=== PATIENT | female | born 1955 | race Caucasian/White ===

== ENCOUNTER → 2017-11-14 | Outpatient (CLI) | payer OTHER ==
--- NOTE | 2017-11-14 15:46 | US ---
EXAMINATION TYPE: US thyroid st tissue head/neck DATE OF EXAM: 11/14/2017 COMPARISON: NONE CLINICAL HISTORY: E04.1 NONTOXIC SINGLE THYROID NODULE. GLAND SIZE: Right Lobe: 4.4 x 1.3 x 1.5 cm Overall Parenchyma: homogenous Left Lobe: 3.7 x 1.5 x 1.0 cm Overall Parenchyma: homogeneous Isthmus Thickness: 0.2 cm NODULES RIGHT: # of nodules measured on right: 1 1. 0.8 X 0.4 x 0.6 cm hypoechoic mixed nodule at the upper pole with well-defined margins; . This nodule is wider than tall and shows intranodular vascularity. Prior size: no prior LEFT: # of nodules measured on left: 0 ISTHMUS: # of nodules measured in the isthmus: 0 Bilateral neck scanned, no evidence of lymphadenopathy. nodule as described IMPRESSION: Nonspecific right-sided thyroid nodule.
--- NOTE | 2017-11-22 13:02 | P.ARTDOP ---
Arterial Doppler LOWER EXTREMITY ARTERIAL DOPPLER: DATE OF SERVICE: 11/14/2017 Reason for study: Bilateral leg pain. Doppler waveforms: Multiphasic bilaterally throughout. Pulse volume recording: Mild distal blunting on the left. Pressure gradients: Mild distal gradients especially on the left. Ankle-brachial indices: Greater than 1 bilaterally. Toe pressures: 97 on the right, 77 on the left Impression: Normal study. Decreased toe pressures can be related to vasospasm or less likely very distal disease..
== END | disposition home or self-care (01) ==
LOC: RADUSWWP 14:13
PROVIDERS: ATTEND Family Medicine
DX: I73.9 Peripheral vascular disease, unspecified (principal); E04.1 Nontoxic single thyroid nodule
CPT/HCPCS: 76536; 93923

== ENCOUNTER → 2017-12-25 | Outpatient (CLI) | payer OTHER ==
--- NOTE | 2017-12-25 19:39 | XR ---
EXAMINATION TYPE: XR chest 2V DATE OF EXAM: 12/25/2017 COMPARISON: 08/11/2015 HISTORY: Cough TECHNIQUE: Frontal and lateral views of the chest are obtained. FINDINGS: Heart and mediastinum are normal. Lungs are clear of consolidation. There is mild thoracic dextroscoliosis. There is no evidence of pleural effusion. There is no heart failure. There is sligh t increased density at the left lung base on the frontal view. IMPRESSION: Normal heart. Possible new minimal infiltrate at the left lung base compared to old exam . No heart failure.
== END | disposition home or self-care (01) ==
LOC: RADXRMAIN 17:04
PROVIDERS: ATTEND Family Medicine
DX: J44.1 Chronic obstructive pulmonary disease with (acute) exacerbation (principal); R05 Cough
CPT/HCPCS: 71046

== ENCOUNTER → 2018-01-12 | Outpatient (CLI) | payer OTHER ==
--- NOTE | 2018-01-12 10:02 | CT ---
EXAMINATION TYPE: CT chest wo con DATE OF EXAM: 01/12/2018 COMPARISON: 12/25/2017 chest radiograph HISTORY: Shortness of breath CT DLP: 445.3 mGycm. Automated Exposure Control for Dose Reduction was Utilized. TECHNIQUE: CT scan of the thorax is performed without IV contrast. FINDINGS: LUNGS: The lungs are grossly clear, there is no concerning parenchymal mass or nodule identified. T here is no pleural effusion or pneumothorax seen. The tracheobronchial tree is patent. There is no e vidence of honeycombing, subpleural reticulation, peribronchial cuffing, emphysema, or pulmonary fibr osis. No interlobular septal thickening. Within a segmental bronchus to the right middle lobe few ins pissated secretions are seen on both supine and prone imaging. No dependent airspace disease is ident ified. MEDIASTINUM: Lack of IV contrast is noted to limit evaluation for mediastinal and especially hilar ad enopathy. There are no definitive greater than 1 cm hilar or mediastinal lymph nodes. No cardiomega ly or pericardial effusion is seen. Ascending thoracic aorta is within normal limits measuring 3.5 cm . Minimal calcifications are noted of the left anterior descending coronary artery. OTHER: No additional significant abnormality is seen. Dystrophic calcification is noted within the u pper outer quadrant of the right breast. Mild multilevel degenerative changes of the osseous structur es are present. IMPRESSION: 1. No evidence of interstitial lung disease, focal consolidation or pulmonary mass. Evaluation for pu lmonary nodule is limited due to noncontiguous slices. 2. Scant inspissated secretions within a segmental bronchus of the right middle lobe that could repre sent nonobstructing mucus plugging or aspiration. No focal consolidation or atelectasis distal to thi s.
== END | disposition home or self-care (01) ==
LOC: RADCTMAIN 08:19
PROVIDERS: ATTEND Family Medicine
DX: R91.8 Other nonspecific abnormal finding of lung field (principal); R06.02 Shortness of breath
CPT/HCPCS: 71250

== ENCOUNTER 2019-05-09 13:27 | Emergency (ER) | payer OTHER ==
[2019-05-09 14:06] VITALS: PULSE 77; RESP 17; TEMP 98.6
[2019-05-09 14:08] VITALS: BP 173/95
--- NOTE | 2019-05-09 14:38 | ED ---
General Adult HPI - General Chief complaint: Extremity Injury, Lower Stated complaint: Left foot pain Time Seen by Provider: 05/09/19 13:55 Source: patient Mode of arrival: EMS Limitations: no limitations - History of Present Illness Initial comments: Patient is 63-year-old female presents emergency Department with left foot pain. Patient states that she days ago [place] when she did not completely roll her ankle but had difficult time walking. Patient reports the pain is located on the lateral medial malleoli as well as the midfoot. Patient reports the pain is only mild and dull in nature. Patient reports pain exacerbated with plantar flexion and alleviated at rest. Patient denies any medication to alleviate the pain. Patient denies numbness or tingling. - Related Data Home Medications Medication Instructions Recorded Confirmed Albuterol Sulfate [Proair Hfa] 2 puff INHALATION RT-BID 09/28/15 09/28/15 Dextroamphetamine/Amphetamine 20 mg PO DAILY 09/28/15 09/28/15 [Adderall] lamoTRIgine [LaMICtal] 200 mg PO HS 09/28/15 09/28/15 Levothyroxine Sodium [Synthroid] 50 mcg PO DAILY 09/29/15 09/29/15 Previous Rx's Medication Instructions Recorded Sertraline [Zoloft] 50 mg PO DAILY #30 tab 10/02/15 Allergies Allergy/AdvReac Type Severity Reaction Status Date / Time levofloxacin [From Levaquin] Allergy DOUBLE Verified 09/28/15 22:37 VISION Penicillins Allergy Rash/Hives Verified 09/28/15 22:37 Sulfa (Sulfonamide AdvReac Rash/Hives Verified 09/28/15 22:37 Antibiotics) Review of Systems ROS Statement: Those systems with pertinent positive or pertinent negative responses have been documented in the HPI. ROS Other: All systems not noted in ROS Statement are negative. 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 Past Anesthesia/Blood Transfusion Reactions: No Reported Reaction Past Psychological History: ADD/ADHD, Anxiety, Depression Smoking Status: Current every day smoker Past Alcohol Use History: Occasional Past Drug Use History: None Reported General Exam - General Exam Comments Initial Comments: General: Well-developed well-nourished distress HEENT: Normocephalic/atraumatic, PERLL, pharynx erythema, swallowing well, EAC no erythema, no exudates, TM clear, no cervical lymph nodes Neck: Supple, nontender, trachea midline Chest/Lungs: Normal respirations, no signs of respiratory distress clear to auscultation bilaterally no wheezes, rales, rhonchi Cardiac: Regular rate and rhythm, normal S1-S2, no murmurs rubs or gallops Abdomen/GI: Soft nontender, bowel sounds equal or quadrant x4, no guarding, no rebound no CVA tenderness Musculoskeletal: Tenderness along the lateral medial malleoli and midfoot. Pain with plantar flexion. Negative Homans, negative anterior drawer. No edema or erythema Skin: Warmth, no rashes or lesions, no cyanosis or diaphoresis Neurologic: AAO x 3, CN 2-12 intact, Psychiatric: Mood and affect normal, judgment normal Limitations: no limitations Course Vital Signs 05/09/19 05/09/19 14:00 14:06 Temperature 98.6 F Pulse Rate 77 Respiratory 17 Rate Blood Pressure 173/95 O2 Sat by Pulse 93 L Oximetry Procedures - Orthopedic Splinting/Casting Injury #1 Side: left Lower Extremity Injury Location: ankle, foot Lower Extremity Immobilizer: Adolfo wrap Medical Decision Making - Medical Decision Making Patient is 63-year-old female presents emergency Department with left foot pain. X-ray of the left ankle and foot were obtained. No acute fractures or dislocations noted. Patient does appear to have arthropathy. Patient advised to have a follow-up imaging if symptoms do not resolve in 7-10 days. Patient advised to follow-up with orthopedics. Patient advised to return to emergency department if symptoms worsen. Adolfo wrap applied to the left foot and ankle. Case discussed with physician. Disposition Clinical Impression: Strain of foot, left Disposition: HOME SELF-CARE Condition: Stable Instructions (If sedation given, give patient instructions): Foot Sprain (ED) Additional Instructions: Alternate between Tylenol and ibuprofen for pain control. Keep foot elevated and apply ice compress to minimize symptoms. Please follow-up with orthopedics if symptoms do not resolve within a week. Please return to emergency department if symptoms worsen. Is patient prescribed a controlled substance at d/c from ED?: No Referrals: Nonstaff,Physician [Primary Care Provider] - 1-2 days Vince Wheeler DO [Medical Doctor] - 1-2 days Time of Disposition: 15:09
--- NOTE | 2019-05-09 14:51 | XR ---
EXAMINATION TYPE: XR ankle complete LT DATE OF EXAM: 05/09/2019 COMPARISON: NONE HISTORY: Pain FINDINGS: Three views of the ankle demonstrate the ankle mortise to be intact and symmetric. The joint spaces are preserved. The osseous structures are intact. There is a calcaneal spur. There is a tiny spur o ff the medial malleolus. IMPRESSION: 1. No definite acute fracture or dislocation, if symptoms persist follow-up study in 7 to 10 days wou ld be suggested.
--- NOTE | 2019-05-09 14:53 | XR ---
EXAMINATION TYPE: XR foot complete LT DATE OF EXAM: 05/09/2019 COMPARISON: NONE HISTORY: Pain TECHNIQUE: Three views are submitted. FINDINGS: The osseous structures are intact. There is no acute fracture or dislocation. Arthropathy first MT P joint. Hammertoe deformities noted. Calcaneal spurs noted.. IMPRESSION: 1. No acute fracture or dislocation. If symptoms persist, follow-up exam in 7 to 10 days could be ob tained. 2. Arthropathy.
== END 2019-05-09 15:20 | disposition home or self-care (01) ==
LOC: EC 13:27
DX: S96.912A Strain of unspecified muscle and tendon at ankle and foot level, left foot, initial encounter (principal); J44.9 Chronic obstructive pulmonary disease, unspecified; E07.9 Disorder of thyroid, unspecified; F90.9 Attention-deficit hyperactivity disorder, unspecified type; F32.9 Major depressive disorder, single episode, unspecified; G47.30 Sleep apnea, unspecified; F17.200 Nicotine dependence, unspecified, uncomplicated; Z88.0 Allergy status to penicillin; Z88.1 Allergy status to other antibiotic agents; Z88.2 Allergy status to sulfonamides; Z79.890 Hormone replacement therapy; Z79.899 Other long term (current) drug therapy; Z99.89 Dependence on other enabling machines and devices; X50.9XXA Other and unspecified overexertion or strenuous movements or postures, initial encounter; Y93.01 Activity, walking, marching and hiking; Y92.832 Beach as the place of occurrence of the external cause
CPT/HCPCS: 99283

== ENCOUNTER 2020-08-16 22:11 | Emergency (ER) | payer MEDICARE, OTHER ==
[2020-08-16 22:16] VITALS: RESP 16
[2020-08-16] MEDS ORDERED: SODIUM CHLORIDE 0.9% 1,000 ML IV STA (22:28)
--- NOTE | 2020-08-16 22:29 | ED ---
Neuro HPI - General Chief Complaint: Neuro Symptoms/Deficit Stated Complaint: Loss of speech Time Seen by Provider: 08/16/20 22:28 Source: patient Mode of arrival: ambulatory Limitations: no limitations - History of Present Illness Is the patient presenting with stroke symptoms?: No Onset/Timin -: hour(s) Initial Comments: Bre is a 64-year-old female who presents the ER today for evaluation of an episode of difficulty speaking. Patient admits that she was smoking marijuana which she does regularly. She states that she was talking to a friend when suddenly felt like she was having trouble getting the words out. She states she felt like her tongue was too big for her mouth and her mouth was very dry. This sensation lasted 10-15 minutes and resolved completely. She had no headache, vision changes, facial droop, weakness in the arms or legs. Patient has no history of clotting disorder, arrhythmia, stroke or cardiovascular disease. - Related Data Home Medications: Home Medications Medication Instructions Recorded Confirmed Albuterol Sulfate [Proair Hfa] 2 puff INHALATION RT-BID 09/28/15 09/28/15 Dextroamphetamine/Amphetamine 20 mg PO DAILY 09/28/15 09/28/15 [Adderall] lamoTRIgine [LaMICtal] 200 mg PO HS 09/28/15 09/28/15 Levothyroxine Sodium [Synthroid] 50 mcg PO DAILY 09/29/15 09/29/15 Previous Rx's Medication Instructions Recorded Sertraline [Zoloft] 50 mg PO DAILY #30 tab 10/02/15 Allergies/Adverse Reactions: Allergies Allergy/AdvReac Type Severity Reaction Status Date / Time levofloxacin [From Levaquin] Allergy DOUBLE Verified 08/16/20 22:12 VISION Penicillins Allergy Rash/Hives Verified 08/16/20 22:12 Sulfa (Sulfonamide AdvReac Rash/Hives Verified 08/16/20 22:12 Antibiotics) Review of Systems ROS Statement: Those systems with pertinent positive or pertinent negative responses have been documented in the HPI. ROS Other: All systems not noted in ROS Statement are negative. General Exam - General Exam Comments Initial Comments: Physical Exam GENERAL: Patient is well-developed and well-nourished. Patient is nontoxic and well- hydrated and is in no distress. HENT: Normocephalic, Atraumatic. EYES: PERRL, EOMI PULMONARY: Unlabored respirations. No audible rales rhonchi or wheezing was noted. CARDIOVASCULAR: There is a regular rate and rhythm without any murmurs gallops or rubs. ABDOMEN: Soft and nontender with normal bowel sounds. SKIN: Skin is clear with no lesions or rashes and otherwise unremarkable. : Deferred NEUROLOGIC: Patient is alert and oriented x3. Moving all extremities spontaneously MUSCULOSKELETAL: Normal extremities with adequate strength and full range of motion. No lower extremity swelling or edema. No calf tenderness. PSYCHIATRIC: Normal psychiatric evaluation. Limitations: no limitations Stroke MDM - Lab Data Result diagrams: 08/16/20 22:45 08/16/20 22:45 Lab Results 08/16/20 08/16/20 08/16/20 Range/Units 22:45 22:45 22:45 WBC 5.9 (3.8-10.6) k/uL RBC 4.87 (3.80-5.40) m/uL Hgb 15.0 (11.4-16.0) gm/dL Hct 47.1 H (34.0-46.0) % MCV 96.6 (80.0-100.0) fL MCH 30.7 (25.0-35.0) pg MCHC 31.8 (31.0-37.0) g/dL RDW 12.8 (11.5-15.5) % Plt Count 282 (150-450) k/uL Neutrophils % 57 % Lymphocytes % 32 % Monocytes % 8 % Eosinophils % 0 % Basophils % 1 % Neutrophils # 3.4 (1.3-7.7) k/uL Lymphocytes # 1.9 (1.0-4.8) k/uL Monocytes # 0.5 (0-1.0) k/uL Eosinophils # 0.0 (0-0.7) k/uL Basophils # 0.0 (0-0.2) k/uL PT 9.7 (9.0-12.0) sec INR 0.9 (<1.2) APTT 26.4 (22.0-30.0) sec Sodium 139 (137-145) mmol/L Potassium 4.1 (3.5-5.1) mmol/L Chloride 104 (98-107) mmol/L Carbon Dioxide 28 (22-30) mmol/L Anion Gap 7 mmol/L BUN 15 (7-17) mg/dL Creatinine 0.72 (0.52-1.04) mg/dL Est GFR (CKD-EPI)AfAm >90 (>60 ml/min/1.73 sqM) Est GFR (CKD-EPI)NonAf 89 (>60 ml/min/1.73 sqM) Glucose 99 (74-99) mg/dL Calcium 9.2 (8.4-10.2) mg/dL Magnesium 2.2 (1.6-2.3) mg/dL Total Bilirubin 0.3 (0.2-1.3) mg/dL AST 20 (14-36) U/L ALT 12 (4-34) U/L Alkaline Phosphatase 134 H (38-126) U/L Total Protein 6.8 (6.3-8.2) g/dL Albumin 4.1 (3.5-5.0) g/dL Urine Color Urine Appearance (Clear) Urine pH (5.0-8.0) Ur Specific [place] (1.001-1.035) Urine Protein (Negative) Urine Glucose (UA) (Negative) Urine Ketones (Negative) Urine Blood (Negative) Urine Nitrite (Negative) Urine Bilirubin (Negative) Urine Urobilinogen (<2.0) mg/dL Ur Leukocyte Esterase (Negative) 08/16/20 Range/Units 22:45 WBC (3.8-10.6) k/uL RBC (3.80-5.40) m/uL Hgb (11.4-16.0) gm/dL Hct (34.0-46.0) % MCV (80.0-100.0) fL MCH (25.0-35.0) pg MCHC (31.0-37.0) g/dL RDW (11.5-15.5) % Plt Count (150-450) k/uL Neutrophils % % Lymphocytes % % Monocytes % % Eosinophils % % Basophils % % Neutrophils # (1.3-7.7) k/uL Lymphocytes # (1.0-4.8) k/uL Monocytes # (0-1.0) k/uL Eosinophils # (0-0.7) k/uL Basophils # (0-0.2) k/uL PT (9.0-12.0) sec INR (<1.2) APTT (22.0-30.0) sec Sodium (137-145) mmol/L Potassium (3.5-5.1) mmol/L Chloride (98-107) mmol/L Carbon Dioxide (22-30) mmol/L Anion Gap mmol/L BUN (7-17) mg/dL Creatinine (0.52-1.04) mg/dL Est GFR (CKD-EPI)AfAm (>60 ml/min/1.73 sqM) Est GFR (CKD-EPI)NonAf (>60 ml/min/1.73 sqM) Glucose (74-99) mg/dL Calcium (8.4-10.2) mg/dL Magnesium (1.6-2.3) mg/dL Total Bilirubin (0.2-1.3) mg/dL AST (14-36) U/L ALT (4-34) U/L Alkaline Phosphatase (38-126) U/L Total Protein (6.3-8.2) g/dL Albumin (3.5-5.0) g/dL Urine Color Yellow Urine Appearance Clear (Clear) Urine pH 6.0 (5.0-8.0) Ur Specific [place] 1.028 (1.001-1.035) Urine Protein Trace H (Negative) Urine Glucose (UA) Negative (Negative) Urine Ketones Negative (Negative) Urine Blood Negative (Negative) Urine Nitrite Negative (Negative) Urine Bilirubin Negative (Negative) Urine Urobilinogen 2.0 (<2.0) mg/dL Ur Leukocyte Esterase Negative (Negative) - NIH Stroke Scale 1a. Level of Consciousness: (0) alert 1b. LOC Questions: (0) answers correctly 1c. LOC Commands: (0) performs tasks correctly 2. Best Gaze: (0) normal 3. Visual: (0) no visual loss 4. Facial Palsy: (0) normal symmetrical movement 5a. Motor Arm Left: (0) no drift 5b. Motor Arm Right: (0) no drift 6a. Motor Leg Left: (0) no drift 6b. Motor Leg Right: (0) no drift 7. Limb Ataxia: (0) absent 8. Sensory: (0) normal 9. Best Language: (0) no aphasia 10. Dysarthria: (0) normal 11. Extinction/Inattention: (0) no abnormality NIH Score total: 0 - Thrombolytic Inclusion/Exclusion Thrombolytic Contraindications: NIH 0, Stroke Too Mild - Medical Decision Making The patient was seen and evaluated history was obtained from patient excited 64-year-old female who reports a 10-15 minute episode of difficulty speaking while smoking marijuana, symptoms resolved completely prior to arrival plan head CT and CTA were obtained as well as labs all of which were unremarkable Patient remained asymptomatic throughout her 2 hour stay in the emergency department I offered patient admission to the observation unit for evaluation by neurology however patient states she would prefer discharge home. Patient states that she has a scheduled appointment with her primary care physician Dr. Meghan Vazquez tomorrow at 4 PM. Patient states she will discuss this episode with her primary care physician. I advised the patient to refrain from smoking marijuana, call 911 or return to the ER for any recurrent symptoms. - EKG Data -: EKG Interpreted by Me EKG shows normal: sinus rhythm Rate: normal EKG was obtained at 2230, rate is 88 rhythm is sinus is leftward axis normal intervals, AK 122, QRS 78, QTC 433 there are no acute ST elevations or depress ions no evidence of acute ischemia, infarction or arrhythmia. 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 Past Anesthesia/Blood Transfusion Reactions: No Reported Reaction Past Psychological History: ADD/ADHD, Anxiety, Depression Smoking Status: Current every day smoker Past Alcohol Use History: Occasional Past Drug Use History: Marijuana Course Vital Signs 08/16/20 08/16/20 08/17/20 22:13 23:45 00:40 Temperature 99.5 F 98.9 F Pulse Rate 95 78 79 Respiratory 16 16 16 Rate Blood Pressure 143/96 147/89 152/76 O2 Sat by Pulse 93 L 100 98 Oximetry Disposition Clinical Impression: Transient speech disturbance Disposition: HOME SELF-CARE Condition: Stable Additional Instructions: Follow up with Dr Vazquez tomorrow as scheduled Call 911 or go to the nearest ER if you have any further trouble speaking or develop any new or concerning symptoms Is patient prescribed a controlled substance at d/c from ED?: No Referrals: Nonstaff,Physician [Primary Care Provider] - 1-2 days
[2020-08-16 23:01] LABS: Appearance,Urine Clear (Clear); Basophils % (A) 1 %; Bilirubin,Urine Negative (Negative); Blood,Urine Negative (Negative); Color,Urine Yellow; Eosinophils % (A) 0 %; Glucose,Urine (UA) Negative (Negative); HCT 47.1 % (34.0-46.0); Ketones,Urine Negative (Negative); Leukocyte Esterase,Urine Negative (Negative); Lymphocytes # (A) 1.9 k/uL (1.0-4.8); Lymphocytes % (A) 32 %; MCH 30.7 pg (25.0-35.0); MCHC 31.8 g/dL (31.0-37.0); MCV 96.6 fL (80.0-100.0); Mean Platelet Volume 6.2; Monocytes # (A) 0.5 k/uL (0-1.0); Monocytes % (A) 8 %; Neutrophils # (A) 3.4 k/uL (1.3-7.7); Neutrophils % (A) 57 %; Nitrite,Urine Negative (Negative); Platelet Count 282 k/uL (150-450); Protein,Urine Trace (Negative); RBC 4.87 m/uL (3.80-5.40); RDW 12.8 % (11.5-15.5); Specific Gravity,Urine 1.028 (1.001-1.035); WBC 5.9 k/uL (3.8-10.6)
[2020-08-16 23:08] LABS: INR 0.9 (<1.2); Partial Thromboplastin Time 26.4 sec (22.0-30.0); Prothrombin Time 9.7 sec (9.0-12.0)
[2020-08-16 23:12] LABS: ALT 12 U/L (4-34); AST 20 U/L (14-36); African American GFR (CKD) >90 (>60 ml/min/1.73 sqM); Albumin 4.1 g/dL (3.5-5.0); Alkaline Phosphatase 134 U/L (38-126); Anion Gap 7 mmol/L; Blood Urea Nitrogen 15 mg/dL (7-17); Calcium 9.2 mg/dL (8.4-10.2); Carbon Dioxide 28 mmol/L (22-30); Chloride 104 mmol/L (98-107); Glucose 99 mg/dL (74-99); Magnesium 2.2 mg/dL (1.6-2.3); Non-African American GFR(CKD) 89 (>60 ml/min/1.73 sqM); Potassium 4.1 mmol/L (3.5-5.1); Sodium 139 mmol/L (137-145); Total Bilirubin 0.3 mg/dL (0.2-1.3); Total Protein 6.8 g/dL (6.3-8.2)
--- NOTE | 2020-08-16 23:50 | XR ---
EXAMINATION TYPE: XR chest 2V DATE OF EXAM: 08/16/2020 COMPARISON: 12/25/2017 HISTORY: Altered mental status. COPD. TECHNIQUE: FINDINGS: Heart is normal. Lungs are clear of consolidation. There are no hilar masses. There are neela st leads. Bony thorax is intact. There is slight thoracic dextroscoliosis. IMPRESSION: No active cardiopulmonary disease. Mild thoracic dextroscoliosis. No change.
--- NOTE | 2020-08-16 23:52 | CT ---
EXAMINATION TYPE: CT brain wo con DATE OF EXAM: 08/16/2020 COMPARISON: 08/15/2015 HISTORY: ams CT DLP: 1089 mGycm Automated exposure control for dose reduction was used. Ventricles have fairly normal size. There is no mass effect nor midline shift. There is no sign of in tracranial hemorrhage. There is no evidence of cerebral edema. Calvarium is intact. The skull base is intact. IMPRESSION: Negative CT scan of the brain. No change.
[2020-08-16 23:53] VITALS: TEMP 98.9
--- NOTE | 2020-08-16 23:56 | CT ---
EXAMINATION TYPE: CT angio head neck DATE OF EXAM: 08/16/2020 COMPARISON: None HISTORY: AMS, CT DLP: 336.5 mGycm Automated exposure control for dose reduction was used. CONTRAST: Performed with IV Contrast, patient injected with 65 mL of Isovue 370. There are 3-D post processed images. There is patency of the great vessels of the aortic arch. There is bilateral arterial flow in the sub clavian arteries. There is arterial flow in the common internal and external carotid arteries bilater ally. There is bilateral arterial flow in the vertebral arteries. There is no evidence of carotid art padmini aneurysm or dissection. There is no evidence of vertebral dissection. There is wide patency of th e carotid artery bifurcations. There is no significant plaque formation. There is arterial flow in the vertebrobasilar artery system. There is bilateral patency of the heel seat sander ior communicating arteries. Posterior cerebral arteries fill to a large extent through the posterior communicating arteries. There is arterial flow in the anterior middle and posterior cerebral arteries . There is no mass effect. I see no intracranial aneurysm or neovascularity. There is no sign of intr acranial arterial stenosis. There is normal opacification of the venous sinuses. IMPRESSION: Negative CT angiogram of the neck. Negative CT angiogram of the brain. No evidence of any significant arterial stenosis.
[2020-08-17 00:47] VITALS: BP 152/76; PULSE 79
== END 2020-08-17 00:40 | disposition home or self-care (01) ==
LOC: EC 22:11
DX: R47.9 Unspecified speech disturbances (principal); J44.9 Chronic obstructive pulmonary disease, unspecified; G47.30 Sleep apnea, unspecified; E07.9 Disorder of thyroid, unspecified; F41.9 Anxiety disorder, unspecified; F32.9 Major depressive disorder, single episode, unspecified; F17.200 Nicotine dependence, unspecified, uncomplicated; Z88.0 Allergy status to penicillin; Z88.2 Allergy status to sulfonamides; Z88.1 Allergy status to other antibiotic agents; Z99.89 Dependence on other enabling machines and devices
CPT/HCPCS: 36415; 93005; 80053; 83735; 85025; 85610; 85730; 81003; 71046; 70496; 70450; 70498; 99285; 96360; 96361; Q9967

== ENCOUNTER → 2024-08-20 | Outpatient (CLI) | payer MEDICARE ==
[2024-08-20 14:44] LABS: African American GFR (CKD) >90 (>60 ml/min/1.73 sqM); Blood Urea Nitrogen 20 mg/dL (7-17); Non-African American GFR(CKD) >90 (>60 ml/min/1.73 sqM)
--- NOTE | 2024-08-20 15:34 | CT ---
EXAMINATION TYPE: CT chest w con CT DLP: 507 mGycm, Automated exposure control for dose reduction was used. DATE OF EXAM: 08/20/2024 3:09 PM COMPARISON: 01/12/2018, 08/16/2020 CLINICAL INDICATION: Female, 68 years old with history of R91.1 SOLITARY PULMONARY NODULE; [facility], TECHNIQUE: Multiple axial images were obtained through the chest. Sagittal and coronal reformats were created for review. MIP was performed on a separate workstation. Contrast used: mL of (None if empty) Oral contrast used: (None if empty) FINDINGS: LUNGS/ PLEURA: 7 mm left upper lobe pulmonary nodule series 3 image 19. Mild centrilobular emphysema changes. No focal consolidation, pneumothorax or pleural effusion. AIRWAY: Patent and unremarkable. HEART: Size within normal limits. MEDIASTINUM: No gross evidence of adenopathy. Small hiatal hernia. VASCULATURE: No aortic aneurysm. No minimal pulmonary arterial filling defect to suggest pulmonary e mbolus. MUSCULOSKELETAL: No acute osseous abnormalities SOFT TISSUES/LYMPH NODES: Unremarkable. LOWER NECK: No significant findings. UPPER ABDOMEN: Left adrenal nodule measuring 12 mm. IMPRESSION: 1. Left upper lobe pulmonary nodule not definitively in the [id number] on prior CT 01/12/2018 or 1 . Comparisons with priors would be of benefit. If there are no comparison 6 month follow-up CT recommended to ensure stability. At that time decision can be made for PET/CT. 2. Indeterminate Left adrenal 12 mm nodule. Consider adrenal mass pedicle CT. 3. Small hiatal hernia. [facility], , 08/20/2024 3:32 PM
== END | disposition home or self-care (01) ==
LOC: RADCTMAIN 13:54
PROVIDERS: ATTEND Internal Medicine Critical Care Medicine
CPT/HCPCS: 36415; 71260; 82565; 84520

== ENCOUNTER → 2024-09-17 | Outpatient (CLI) | payer MEDICARE ==
[2024-09-17 16:30] LABS: African American GFR (CKD) >90 (>60 ml/min/1.73 sqM); Blood Urea Nitrogen 16 mg/dL (7-17); Non-African American GFR(CKD) >90 (>60 ml/min/1.73 sqM)
--- NOTE | 2024-09-17 17:33 | CT ---
EXAMINATION TYPE: CT abdomen w con DATE OF EXAM: 09/17/2024 5:18 PM COMPARISON: 01/12/2018 08/20/2024. CLINICAL INDICATION: Female, 68 years old with history of D35.02 BENIGN NEOPLASM L ADRENAL GLAND E27. 9; BENIGN NEOPLASM L ADRENAL GLAND. TECHNIQUE: Axial CT abdomen w con;Sagittal and coronal reformats were created on a separate workstat ion. Contrast used:100ML mL of Isovue 370 with IV Contrast, (none if empty) Oral contrast used: with Oral Contrast (none if empty) CT DLP: 449 mGycm, Automated exposure control for dose reduction was used. FINDINGS: LOWER CHEST: Unremarkable ABDOMEN LIVER: Unremarkable GALLBLADDER AND BILE DUCTS: Unremarkable. PANCREAS: Unremarkable. SPLEEN: Unremarkable. ADRENAL GLANDS: 11 mm left adrenal nodule. No right adrenal nodule. KIDNEYS AND URETERS: No evidence of hydronephrosis or renal calculus. The ureters are unremarkable. Simple appearing left renal cysts. STOMACH AND BOWEL: No evidence of bowel obstruction. PERITONEUM/RETROPERITONEUM: No evidence of pneumoperitoneum or free fluid. VASCULATURE: No evidence of aortic aneurysm. MUSCULOSKELETAL: No acute osseous abnormalities LYMPH NODES: No gross evidence for lymphadenopathy. SOFT TISSUE/ABDOMINAL WALL: Unremarkable IMPRESSION: Left adrenal 10 mm nodule which is indeterminate on single phase CT imaging. Consider MRI adrenal mas s protocol or CT adrenal mass protocol for further characterization. In the absence of risk factors i s statistically likely represent benign lipid rich adrenal adenoma. [facility], , 09/17/2024 5:31 PM
== END | disposition home or self-care (01) ==
LOC: RADCTMAIN 15:44
PROVIDERS: ATTEND Family Medicine
DX: D35.02 Benign neoplasm of left adrenal gland (principal); E27.9 Disorder of adrenal gland, unspecified; N28.1 Cyst of kidney, acquired
CPT/HCPCS: 82565; 84520; 74160; 36415; Q9967

== ENCOUNTER 2025-02-02 14:58 | Inpatient (IN) | payer MEDICARE ==
--- NOTE | 2025-02-02 15:22 | ED ---
General Adult HPI - General Chief complaint: Shortness of Breath Stated complaint: weakness, coughing, difficulty breathing Time Seen by Provider: 02/02/25 15:10 Source: patient, RN notes reviewed, old records reviewed Mode of arrival: wheelchair Limitations: no limitations - History of Present Illness Initial comments: This is a 69-year-old female who presents to the emergency department the past medical history significant for COPD. Patient states she has had a cough and a fever over the last 6 days. Patient states she went to urgent care and they recommended she came to the emergency department. Patient also is significantly more short of breath than normal. Patient denies any chest pain or palpitations. Patient has any abdominal pain patient has nausea vomiting diarrhea. - Related Data Home Medications Medication Instructions Recorded Confirmed Albuterol Sulfate [Proair Hfa] 2 puff INHALATION RT-BID 09/28/15 09/28/15 Dextroamphetamine/Amphetamine 20 mg PO DAILY 09/28/15 09/28/15 [Adderall] lamoTRIgine [LaMICtal] 200 mg PO HS 09/28/15 09/28/15 Levothyroxine Sodium [Synthroid] 50 mcg PO DAILY 09/29/15 09/29/15 Previous Rx's Medication Instructions Recorded Sertraline [Zoloft] 50 mg PO DAILY #30 tab 10/02/15 Allergies Allergy/AdvReac Type Severity Reaction Status Date / Time levofloxacin [From Levaquin] Allergy DOUBLE Verified 02/02/25 15:10 VISION Penicillins Allergy Rash/Hives Verified 02/02/25 15:10 Sulfa (Sulfonamide AdvReac Rash/Hives Verified 02/02/25 15:10 Antibiotics) Review of Systems ROS Statement: Those systems with pertinent positive or pertinent negative responses have been documented in the HPI. ROS Other: All systems not noted in ROS Statement are negative. 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 / Comment(s): multiple manager action surgeries pt is unsure of what was done Past Anesthesia/Blood Transfusion Reactions: No Reported Reaction Past Psychological History: ADD/ADHD, Anxiety, Depression Smoking Status: Current every day smoker Past Alcohol Use History: Occasional Past Drug Use History: Marijuana General Exam - General Exam Comments Initial Comments: GENERAL: Patient is well-developed and well-nourished. Patient is nontoxic and well- hydrated and is in mild distress. ENT: Neck is soft and supple. No significant lymphadenopathy is noted. Oropharynx is clear. Moist mucous membranes. Neck has full range of motion without eliciting any pain. EYES: The sclera were anicteric and conjunctiva were pink and moist. Extraocular movements were intact and pupils were equal round and reactive to light. Eyelids were unremarkable. PULMONARY: Patient has diminished breath sounds with some expiratory wheezing CARDIOVASCULAR: There is a regular rate and rhythm without any murmurs gallops or rubs. ABDOMEN: Soft and nontender with normal bowel sounds. SKIN: Skin is clear with no lesions or rashes and otherwise unremarkable. NEUROLOGIC: Patient is alert and oriented x3. Cranial nerves II through XII are grossly intact. Motor and sensory are also intact. Normal speech, volume and content. Symmetrical smile. MUSCULOSKELETAL: Normal extremities with adequate strength and full range of motion. No lower extremity swelling or edema. No calf tenderness. LYMPHATICS: No significant lymphadenopathy is noted PSYCHIATRIC: Normal psychiatric evaluation. Limitations: no limitations Course Vital Signs 02/02/25 15:08 Temperature 100.3 F H Pulse Rate 92 Respiratory 22 Rate Blood Pressure 133/82 O2 Sat by Pulse 94 L Oximetry Medical Decision Making - Medical Decision Making EKG is interpreted by myself but EKG shows a sinus rhythm 85 bpm MA interval is 127 QRS 105 QT interval 363 QTc is 405. Patient's EKG shows no ST segment elevation or depression Was pt. sent in by a medical professional or institution (, PA, CELLULAR EQUIPMENT INSTALLER, urgent care, hospital, or custodial...) When possible be specific @ -No Did you speak to anyone other than the patient for history (EMS, parent, family, police, friend...)? What history was obtained from this source @ -No Did you review nursing and triage notes (agree or disagree)? Why? @ -I reviewed and agree with nursing and triage notes Were old charts reviewed (outside hosp., previous admission, EMS record, old EKG, old radiological studies, urgent care reports/EKG's, custodial records)? Report findings @ -No old charts were reviewed Differential Diagnosis? @ -Differential Dyspnea: Coronary syndrome, arrhythmia, tamponade, asthma, COPD, pulmonary embolism, pneumonia, pneumothorax, pulmonary effusion, anaphylaxis, diabetic ketoacidosis, flailed chest, pulmonary contusion, diaphragmatic rupture, anemia, neuromuscular, this is not meant to be an all-inclusive list. EKG interpreted by me (3pts min.). @ -As above X-rays interpreted by me (1pt min.). @ -Chest x-ray shows no acute abnormality CT interpreted by me (1pt min.). @ -None done U/S interpreted by me (1pt. min.). @ -None done What testing was considered but not performed or refused? (CT, X-rays, U/S, labs)? Why? @ -None What meds were considered but not given or refused? Why? @ -None Did you discuss the management of the patient with other professionals (professionals i.e. , PA, CELLULAR EQUIPMENT INSTALLER, lab, RT, psych nurse, social worker delinquency prevention, plastics fabricator, teacher, strike operations officer, classification case manager)? Give summary @ -I spoke with Dr. Lima and he agreed to admit the patient admit the patient recommending orders Was smoking cessation discussed for >3mins.? @ -No Was critical care preformed (if so, how long)? @ -No Were there social determinants of health that impacted care today? How? (Homelessness, low income, unemployed, alcoholism, drug addiction, transport ation, low edu. Level, literacy, decrease access to med. care, senior care, rehab)? @ -No Was there de-escalation of care discussed even if they declined (Discuss DNR or withdrawal of care, Hospice)? DNR status @ -No What co-morbidities impacted this encounter? (DM, HTN, Smoking, COPD, CAD, Cancer, CVA, ARF, Chemo, Hep., AIDS, mental health diagnosis, sleep apnea, morbid obesity)? @ -None Was patient admitted / discharged? Hospital course, mention meds given and route, prescriptions, significant lab abnormalities, going to OR and other pertinent info. @ -Patient has an exacerbation of COPD patient received antibiotics albuterol and Solu-Medrol while in the emergency department. Patient will be admitted to Dr. Estrada. Patient also got Tylenol Motrin for the fever Undiagnosed new problem with uncertain prognosis? @ -No Drug Therapy requiring intensive monitoring for toxicity (Heparin, Nitro, Insulin, Cardizem)? @ -No Were any procedures done? @ -No Diagnosis/symptom? @ -COPD exacerbation Acute, or Chronic, or Acute on Chronic? @ -Acute Uncomplicated (without systemic symptoms) or Complicated (systemic symptoms)? @ -Default Side effects of treatment? @ -No Exacerbation, Progression, or Severe Exacerbation? @ -No Poses a threat to life or bodily function? How? (Chest pain, [place], [place], pneumonia, PE, COPD, DKA, ARF, appy, cholecystitis, CVA, Diverticulitis, Homicidal, Suicidal, threat to staff... and all critical care pts) @ -Yes this can lead to hypoxia and endorgan dysfunction Disposition Clinical Impression: Acute exacerbation of chronic obstructive pulmonary disease Disposition: ADMITTED IP TO THIS HOSP Referrals: Hayes Estrada MD [Primary Care Provider] - 1-2 days Time of Disposition: 15:56
[2025-02-02] MEDS: IBUPROFEN 600 MG TAB PO STA (15:52)
[2025-02-02] MEDS: ACETAMINOPHEN TAB 500 MG TAB PO STA (15:53)
[2025-02-02] MEDS: methylPREDNISolone SOD SUCCI 125 MG/2 ML VIAL IV STA (15:54)
[2025-02-02] MEDS ORDERED: IPRATROPIUM-ALBUTEROL 3 ML NEB INHALATION PRN ×2 (15:56→19:50)
[2025-02-02] MEDS ORDERED: NALOXONE 0.4 MG/ML 1 ML VIAL IVP PRN (15:56)
[2025-02-02] MEDS: cefTRIAXone IN SWFI 1,000 MG/10 ML SYRINGE IVP STA ×2 (16:00→16:27)
[2025-02-02 16:01] LABS: Basophils # (A) 0.1 k/uL (0-0.2); Basophils % (A) 1 %; Eosinophils # (A) 0.1 k/uL (0-0.7); Eosinophils % (A) 0 %; HCT 39.9 % (34.0-46.0); HGB 12.3 gm/dL (11.4-16.0); Lymphocytes # (A) 1.6 k/uL (1.0-4.8); Lymphocytes % (A) 11 %; MCH 28.9 pg (25.0-35.0); MCHC 30.8 g/dL (31.0-37.0); MCV 93.7 fL (80.0-100.0); Mean Platelet Volume 6.9; Monocytes # (A) 0.7 k/uL (0-1.0); Monocytes % (A) 5 %; Neutrophils # (A) 11.4 k/uL (1.3-7.7); Neutrophils % (A) 82 %; Platelet Count 415 k/uL (150-450); RBC 4.25 m/uL (3.80-5.40)
[2025-02-02] MEDS: LACTATED RINGERS 1,000 ML IV ONE (16:01)
[2025-02-02 16:11] LABS: ALT 12 U/L (4-34); AST 16 U/L (14-36); African American GFR (CKD) >90 (>60 ml/min/1.73 sqM); Albumin 3.7 g/dL (3.5-5.0); Alkaline Phosphatase 165 U/L (38-126); Anion Gap 9 mmol/L; Blood Urea Nitrogen 15 mg/dL (7-17); Calcium 9.3 mg/dL (8.4-10.2); Carbon Dioxide 28 mmol/L (22-30); Chloride 96 mmol/L (98-107); Glucose 120 mg/dL (74-99); INR 0.9 (<1.2); Non-African American GFR(CKD) >90 (>60 ml/min/1.73 sqM); Potassium 3.9 mmol/L (3.5-5.1); Prothrombin Time 10.3 sec (10.0-12.5); Sodium 133 mmol/L (137-145); Total Bilirubin 0.4 mg/dL (0.2-1.3); Total Protein 6.5 g/dL (6.3-8.2)
--- NOTE | 2025-02-02 16:19 | XR ---
EXAMINATION TYPE: XR chest 2V DATE OF EXAM: 02/02/2025 4:14 PM COMPARISON: Previous chest radiograph, most recent dated 08/16/2020. CLINICAL INDICATION: Female, 69 years old with history of difficulty breathing; [facility] TECHNIQUE: XR chest 2V Frontal and lateral views of the chest. FINDINGS: Stable cardiac silhouette. Interstitial prominence bilaterally. No sizable pleural effusion. No acute focal consolidation. No acute osseous abnormality. IMPRESSION: Interstitial prominence bilaterally which could reflect pulmonary edema and/or underlying COPD change s. [facility], , 02/02/2025 4:17 PM
[2025-02-02] MEDS: ALBUTEROL NEBULIZED 2.5 MG/3 ML INHALATION STA (16:22)
[2025-02-02] MEDS: IPRATROPIUM 0.5 MG/2.5 ML NEBU INHALATION STA (16:22)
[2025-02-02] MEDS: AZITHROMYCIN 500 MG TAB PO SCH (16:28)
[2025-02-02] MEDS: IPRATROPIUM-ALBUTEROL 3 ML NEB INHALATION SCH (16:32)
[2025-02-02 16:36] LABS: Influenza A Not Detected (Not Detectd); Influenza B Not Detected (Not Detectd); RSV Not Detected (Not Detectd)
[2025-02-02] MEDS ORDERED: NON FORMULARY DRUG (Dextroamphetamine/Amphetamine [Adderall] 15 MG Tablet) PO PRN (19:50)
[2025-02-02] MEDS ORDERED: ALBUTEROL NEBULIZED 2.5 MG/3 ML INHALATION PRN (19:50)
[2025-02-02] MEDS: methylPREDNISolone SOD SUCCI 125 MG/2 ML VIAL IV SCH (20:28)
[2025-02-02] MEDS: traZODone HCL 100 MG TAB PO SCH (20:29)
[2025-02-02] MEDS: MELATONIN 3 MG TABLET PO SCH (20:29)
[2025-02-02] MEDS: MONTELUKAST 10 MG TAB PO SCH (20:29)
[2025-02-03] MEDS: SYMBICORT 160-4.5 MCG INHALER INHALATION SCH (08:05)
[2025-02-03] MEDS: TIOTROPIUM 2.5 MCG INHALER INHALATION SCH (08:09)
[2025-02-03] MEDS: CHOLECALCIFEROL 25 MCG (1000 IU) TABLET PO SCH (08:18)
[2025-02-03] MEDS: hydroCHLOROthiazide 25 MG TAB PO SCH (08:18)
[2025-02-03] MEDS: DULoxetine HCL 60 MG CAPSULE.DR PO SCH (08:18)
[2025-02-03] MEDS: FERROUS SULFATE 325 MG TAB PO SCH (08:18)
[2025-02-03] MEDS: amLODIPine 10 MG TAB PO SCH (08:18)
[2025-02-03] MEDS: lamoTRIgine 100 MG TAB PO SCH (08:18)
[2025-02-03] MEDS: buPROPion XL 150 MG TAB.ER.24H PO SCH (08:18)
[2025-02-03] MEDS: MULTIVITAMINS, THERA 1 EACH TAB PO SCH (08:18)
[2025-02-03] MEDS: guaiFENesin 600 MG TABLET.ER PO SCH (08:18)
[2025-02-03] MEDS: LEVOTHYROXINE 50 MCG TAB PO SCH (08:18)
[2025-02-03] MEDS: LORATADINE 10 MG TAB PO SCH (08:18)
[2025-02-03] MEDS: ALPRAZolam 1 MG TAB PO PRN (11:23)
--- NOTE | 2025-02-04 00:36 | HP ---
HISTORY AND PHYSICAL CHIEF COMPLAINT: Difficulty breathing. HISTORY OF PRESENT ILLNESS: This is another admission for this 69-year-old female with severe COPD. She has been barely able to maintain at home. She isn't smoking any longer. REVIEW OF SYSTEMS: She is extremely tight and short of breath, but she has no chest pain, hemoptysis, orthopnea, etc. Past medical history, family history, personal and social histories are all otherwise unchanged from her previous admitting and discharge summaries. She is allergic to quinolones, sulfa, and penicillin. MEDICATIONS: She has been on, 1. Hydrochlorothiazide. 2. Amlodipine. 3. Duloxetine. 4. Lamotrigine. 5. Montelukast. 6. Bupropion. 7. Oxygen. 8. Xanax. 9. Finasteride. 10.Vicodin. 11.Adderall. 12.Albuterol. 13.Trelegy. 14.Vitamin D and updrafts with DuoNeb. The remainder of her history is unremarkable and noncontributory. PHYSICAL EXAMINATION: VITAL SIGNS: Blood pressure 120/74 with a pulse of 98, respirations of 48. She is afebrile. GENERAL: She appeared to be chronically ill in appearance, pale, weak, and tachypneic. SKIN: Dry. HEAD, EARS, EYES, NOSE, MOUTH AND THROAT: Unremarkable. NECK: Neck veins were slightly distended. CHEST: Demonstrated extremely poor breath sounds with vesicular rales. There were no rhonchi. There were some inspiratory and expiratory wheezing. CARDIAC: Demonstrated sinus tachycardia. ABDOMEN: Soft, nontender. EXTREMITIES: Normal. IMPRESSION: Exacerbation of chronic obstructive pulmonary disease. PLAN: 1. Bedrest. 2. IV fluids. 3. Nasal O2. 4. Updrafts. 5. Steroids. MMODL / IJN: [id number] /
--- NOTE | 2025-02-04 03:57 | PN ---
PROGRESS NOTE DATE OF SERVICE: 02/03/2025 CHIEF COMPLAINT: Exacerbation of COPD. HISTORY OF PRESENT ILLNESS: This lady is doing reasonably well. She has no complaints. She has had no fever or chills. PHYSICAL EXAMINATION: LUNGS: She is very dyspneic on oxygen. Breath sounds are greatly diminished on auscultation. She has leathery sounding rales. CARDIAC: Reveals tachycardia. IMPRESSION: Exacerbation of chronic obstructive pulmonary disease. PLAN: Continue with current program and follow her white count which is elevated at 14,000. MMODL / IJN: [id number] /
[2025-02-04] MEDS ORDERED: ACETAMINOPHEN TAB 325 MG TAB PO PRN (13:10)
[2025-02-04] MEDS: ACETAMINOPHEN TAB 325 MG TAB PO PRN (13:17)
--- NOTE | 2025-02-05 04:48 | PN ---
PROGRESS NOTE DATE OF SERVICE: 02/04/2025 CHIEF COMPLAINT: Exacerbation of COPD. HISTORY OF PRESENT ILLNESS: This lady is doing well, but she is complaining a generalized total body pain. Breathing is no better. PHYSICAL EXAMINATION: She is still very tachypneic, and breath sounds are extremely poor. There are scattered rales and rhonchi and expiratory wheezing with sinus tachycardia. IMPRESSION: Exacerbation of chronic obstructive pulmonary disease. PLAN: Continue on current program. She will be tried on Tylenol for the pain. MMODL / IJN: [id number] /
--- NOTE | 2025-02-06 04:20 | PN ---
PROGRESS NOTE CHIEF COMPLAINT: COPD. HISTORY OF PRESENT ILLNESS: This lady is doing fairly well, but she still feels quite dizzy. PHYSICAL EXAMINATION: CHEST: Demonstrates extremely poor breath sounds with increased AP diameter. CARDIAC: Normal. IMPRESSION: Chronic obstructive pulmonary disease. PLAN: 1. Continue with current program. 2. Dizziness, etiology unknown. MMODL / IJN: [id number] /
--- NOTE | 2025-02-06 04:55 | P.CNPUL ---
History of Present Illness Consult date: 02/06/25 Requesting physician: Hayes Estrada Reason for consult: COPD Chief complaint: Shortness of breath History of present illness: Patient is a 69-year-old female with past medical history significant for COPD, home oxygen dependence, former tobacco smoker, obstructive sleep apnea noncompliant with CPAP, hypothyroidism, hypertension, anxiety/depression. She does follow in the pulmonary office with Dr. Varela for management of her very severe COPD, she has an FEV1 26% predicted at baseline. Normally utilizes a combination of Trelegy maintenance inhaler, albuterol nebs and as needed al buterol rescue inhaler. She presented the emergency department back on 02/02/2025 with a chief complaint of increased work of breathing, cough with green sputum production, and intermittent fevers. Workup in the ED, including a chest x-ray with interstitial prominence and COPD like changes. Viral screen negative for influenza A/B, RSV, COVID. CBC: WBC count 14, hemoglobin 12.3, platelets 415. CMP: Sodium 133, potassium 3.9, chloride 96, serum bicarb 28, BUN 15, creatinine 0.54, glucose 120. Lactic 1.1. LFTs not elevated. Troponin less than 0.012. NT proBNP 83. Patient previously started on a combination of Symbicort inhaler, and IV steroids, along with DuoNebs [id number]. Re ceived a 3-day course of azithromycin. Patient has had minimal improvement in her respiratory symptoms and a pulmonary consult was placed early this morning. She is currently being evaluated in the [facility] medical floor. She is on 3 L/min nasal cannula, which she wears at home. States her symptoms initially started approximately 10 days ago. Developed increased cough with green phlegm production. Has been intermittently febrile while at home, with a Tmax of 101 F. She denies any known sick contacts, however, lives in an apartment complex. Continues to have intermittent coughing, however, sputum production is less and cough is mostly dry. No longer febrile. Current vital signs, temperature 97.6 F, heart rate 71 bpm, blood pressure 130/73 mmHg, nontachypneic, SpO2 reading 97% on 3 L/min nasal cannula. Review of Systems Constitutional: Reports chills, Reports fatigue, Reports fever, Denies poor appetite, Denies weight gain, Denies weight loss Ears, nose, mouth and throat: Denies headache, Denies nasal congestion, Denies nasal discharge, Denies post-nasal drip, Denies sinus pain, Denies sinus pressure, Denies sore throat Cardiovascular: Reports dyspnea on exertion, Denies chest pain, Denies leg edema, Denies lightheadedness, Denies orthopnea, Denies palpitations, Denies paroxysmal nocturnal dyspnea, Denies shortness of breath Respiratory: Reports congestion, Reports cough, Reports cough with sputum, Reports home oxygen, Reports wheezing, Denies excessive sputum, Denies hemoptysis, Denies pain on inspiration Gastrointestinal: Denies abdominal pain, Denies constipation, Denies diarrhea, Denies hematemesis, Denies nausea, Denies vomiting Genitourinary: Denies dysuria Musculoskeletal: Denies limitation of motion Integumentary: Denies rash Neurological: Denies seizures, Denies syncope Psychiatric: Reports anxiety, Reports depression, Denies suicidal ideation 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 / Comment(s): multiple preschool assistant 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 pt is unsure of what was done Past Anesthesia/Blood Transfusion Reactions: No Reported Reaction Past Psychological History: ADD/ADHD, Anxiety, Depression Smoking Status: Current every day smoker Past Alcohol Use History: Occasional Past Drug Use History: Marijuana Medications and Allergies Home Medications Medication Instructions Recorded Confirmed Type Albuterol Sulfate [Proair Hfa] 2 puff INHALATION RT-QID PRN 09/28/15 02/02/25 History Levothyroxine Sodium [Synthroid] 50 mcg PO 0900 09/29/15 02/02/25 History ALPRAZolam [Xanax] 1 mg PO BID PRN 02/02/25 02/02/25 History Cholecalciferol (Vitamin D3) 50 mcg PO DAILY 02/02/25 02/02/25 History [Vitamin D3 (50 Mcg = 2000 Iu)] DULoxetine HCL [Cymbalta] 60 mg PO DAILY 02/02/25 02/02/25 History Dextroamphetamine/Amphetamine 15 mg PO BID PRN 02/02/25 02/02/25 History [Adderall] Ferrous Sulfate [Feosol] 325 mg PO DAILY 02/02/25 02/02/25 History Fluticasone/Umeclidin/Vilanter 1 puff INHALATION RT-DAILY 02/02/25 02/02/25 History [Treleshavon Ellipta 100-62.5-25] Ipratropium-Albuterol Nebulize 3 ml INHALATION RT-QID PRN 02/02/25 02/02/25 History [Duoneb 0.5 mg-3 mg/3 ml Soln] Loratadine [Claritin] 10 mg PO DAILY 02/02/25 02/02/25 History Melatonin 3 mg PO HS 02/02/25 02/02/25 History Montelukast [Singulair] 10 mg PO HS 02/02/25 02/02/25 History Multivit-Min/Iron/Folic/Lutein 1 tab PO DAILY 02/02/25 02/02/25 History [Centrum Silver Women Tablet] amLODIPine [Norvasc] 10 mg PO DAILY 02/02/25 02/02/25 History buPROPion XL [Wellbutrin XL] 150 mg PO DAILY 02/02/25 02/02/25 History guaiFENesin [Mucinex] 600 mg PO DAILY 02/02/25 02/02/25 History hydroCHLOROthiazide [Hydrodiuril] 25 mg PO DAILY 02/02/25 02/02/25 History lamoTRIgine [LaMICtal Xr] 200 mg PO DAILY 02/02/25 02/02/25 History traZODone HCL [Desyrel] 100 mg PO HS 02/02/25 02/02/25 History Allergies Allergy/AdvReac Type Severity Reaction Status Date / Time levofloxacin [From Levaquin] Allergy DOUBLE Verified 02/02/25 16:25 VISION Penicillins Allergy Rash/Hives Verified 02/02/25 16:25 Sulfa (Sulfonamide AdvReac Rash/Hives Verified 02/02/25 16:25 Antibiotics) Physical Exam Vitals: Vital Signs Temp Pulse Pulse Resp BP Pulse Ox 02/06/25 01:40 97.6 F 71 12 130/73 97 02/05/25 20:00 99.0 F 92 14 132/83 95 02/05/25 19:03 104 H 02/05/25 18:54 100 02/05/25 15:56 100 02/05/25 15:38 102 H 02/05/25 14:00 98.3 F 85 20 101/70 95 02/05/25 12:08 72 02/05/25 11:57 80 02/05/25 08:54 88 02/05/25 08:40 85 98 02/05/25 08:00 98 F 74 18 148/84 97 Intake and Output 02/05/25 02/05/25 02/06/25 14:59 22:59 06:59 Intake Total 540 Balance 540 Intake: Oral 540 Other: # Voids 1 4 GENERAL EXAM: Alert, 69-year-old white female, on 3 L/min nasal cannula, comfortable in no apparent distress. HEAD: Normocephalic and atraumatic EYES: Normal reaction of pupils, equal size. NOSE: Clear with pink turbinates. THROAT: No erythema or exudates. NECK: No masses, no JVD. CHEST: No chest wall deformity. LUNGS: Equal air entry with no crackles, wheeze, rhonchi or dullness. No conversational dyspnea or accessory muscle use. Persistent dry cough. CVS: S1 and S2 normal with no audible murmur, regular rhythm. No extra heart sounds ABDOMEN: No hepatosplenomegaly, active bowel sounds, no guarding or rigidity. SPINE: No scoliosis or deformity SKIN: No rashes CENTRAL NERVOUS SYSTEM: No focal deficits, tone is normal in all 4 extremities. EXTREMITIES: There is no peripheral edema, clubbing, or cyanosis. Peripheral pulses are intact. Results - Laboratory Findings CBC and BMP: 02/02/25 15:45 02/02/25 15:45 PT/INR, D-dimer PT 10.3 sec (10.0-12.5) 02/02/25 15:45 INR 0.9 (<1.2) 02/02/25 15:45 Abnormal lab findings: Abnormal Labs 02/02/25 02/02/25 15:45 15:45 WBC 14.0 H MCHC 30.8 L Neutrophils # 11.4 H Sodium 133 L Chloride 96 L Glucose 120 H Alkaline Phosphatase 165 H - Diagnostic Findings Chest x-ray: image reviewed Assessment and Plan Assessment: Acute COPD exacerbation Acute on chronic hypoxemic respiratory failure, secondary to above Very severe oxygen dependent COPD with an FEV1 26% of predicted Acute leukocytosis Former tobacco smoker History of obstructive sleep apnea, noncompliant with CPAP Hypertension History of hypothyroidism Anxiety/depression Plan: Patient's medications, labs, chest x-ray reviewed Chest x-ray showing COPD like changes with interstitial prominence and no obvious focal infiltrates Viral screen negative for influenza A/B, RSV, COVID Received 3-day course of azithromycin Continue supplemental oxygen, currently on 3 L/min nasal cannula Continue combination of DuoNebs [id number], Symbicort inhaler, and IV Solu-Medrol We will continue to follow I have personally seen and examined the patient, performed the documentation and the assessment and plan as written. Number of minutes spent on the visit:20 Time with Patient: Greater than 30
[2025-02-06] MEDS: predniSONE 20 MG TAB PO SCH (08:53)
--- NOTE | 2025-02-06 22:23 | HP ---
HISTORY AND PHYSICAL CHIEF COMPLAINT: Exacerbation of COPD. HISTORY OF PRESENT ILLNESS: This lady is crying, stating that she is having generalized pain. She is also still very congested and very short of breath. She is being referred to Pulmonology. PHYSICAL EXAMINATION: LUNGS: Breath sounds are extremely poor with inspiratory and expiratory wheezes and rales as well as prolonged expiratory phase. CARDIAC: Normal. ABDOMEN: Soft, nontender. IMPRESSION: 1. Exacerbation of chronic obstructive pulmonary disease. 2. Depression. PLAN: 1. Continue with current program. 2. Pulmonology consult. MMODL / IJN: [id number] /
[2025-02-07 08:04] VITALS: BP 110/67; PULSE 71; RESP 20; TEMP 98.1
--- NOTE | 2025-02-07 13:21 | P.PN ---
Subjective Progress Note Date: 02/07/25 Patient is a 69-year-old female with past medical history significant for COPD, home oxygen dependence, former tobacco smoker, obstructive sleep apnea noncompliant with CPAP, hypothyroidism, hypertension, anxiety/depression. She does follow in the pulmonary office with Dr. Varela for management of her very severe COPD, she has an FEV1 26% predicted at baseline. Normally utilizes a combination of Trelegy maintenance inhaler, albuterol nebs and as needed albuterol rescue inhaler. She presented the emergency department back on 02/02/2025 with a chief complaint of increased work of breathing, cough with green sputum production, and intermittent fevers. Workup in the ED, including a chest x-ray with interstitial prominence and COPD like changes. Viral screen negative for influenza A/B, RSV, COVID. CBC: WBC count 14, hemoglobin 12.3, platelets 415. CMP: Sodium 133, potassium 3.9, chloride 96, serum bicarb 28, BUN 15, creatinine 0.54, glucose 120. Lactic 1.1. LFTs not elevated. Troponin less than 0.012. NT proBNP 83. Patient previously started on a combination of Symbicort inhaler, and IV steroids, along with DuoNebs [id number]. Received a 3-day course of azithromycin. Patient has had minimal improvement in her respiratory symptoms and a pulmonary consult was placed early this morning. She is currently being evaluated in the [facility] medical floor. She is on 3 L/min nasal cannula, which she wears at home. States her symptoms initially started approximately 10 days ago. Developed increased cough with green phlegm production. Has been intermittently febrile while at home, with a Tmax of 101 F. She denies any known sick contacts, however, lives in an apartment complex. Continues to have intermittent coughing, however, sputum production is less and cough is mostly dry. No longer febrile. Current vital signs, temperature 97.6 F, heart rate 71 bpm, blood pressure 130/73 mmHg, nontachypneic, SpO2 reading 97% on 3 L/min nasal cannula. The patient is seen today February 07, 2025 in follow-up on the regular medical floor. She is currently sitting up at the bedside. Awake and alert in no acute distress. Maintaining O2 saturations in the 90s on 3 L/min per nasal cannula. She is feeling quite a bit better. Less bronchospastic and wheezy. Blood culture revealed no growth. No new labs today. Continued on DuoNeb inhalations, Symbicort, prednisone taper. Objective - Vital Signs Vital signs: Vital Signs Temp 98.1 F 02/07/25 07:20 Pulse 71 02/07/25 08:00 Resp 20 02/07/25 07:20 BP 110/67 02/07/25 07:20 Pulse Ox 97 02/07/25 07:47 FiO2 Intake & Output 02/06/25 02/07/25 02/07/25 18:59 06:59 18:59 Intake Total 1598 Balance 1598 Intake: Oral 1598 Other: Voiding Method Toilet Toilet Toilet # Voids 5 1 - Exam GENERAL EXAM: Alert, pleasant 69-year-old female, on 3 L nasal cannula, co mfortable in no apparent distress. HEAD: Normocephalic. EYES: Normal reaction of pupils, equal size. NOSE: Clear with pink turbinates. THROAT: No erythema or exudates. NECK: No masses, no JVD. CHEST: No chest wall deformity. LUNGS: Equal air entry with faint end expiratory wheeze, diminished. CVS: S1 and S2 normal with no audible murmur, regular rhythm. ABDOMEN: No hepatosplenomegaly, normal bowel sounds, no guarding or rigidity. SPINE: No scoliosis or deformity SKIN: No rashes CENTRAL NERVOUS SYSTEM: No focal deficits, tone is normal in all 4 extremities. EXTREMITIES: There is no peripheral edema. No clubbing, no cyanosis. Peripheral pulses are intact. - Labs CBC & Chem 7: 02/02/25 15:45 02/02/25 15:45 Assessment and Plan Assessment: Acute COPD exacerbation Acute on chronic hypoxemic respiratory failure, secondary to above Very severe oxygen dependent COPD with an FEV1 26% of predicted Acute leukocytosis Former tobacco smoker History of obstructive sleep apnea, noncompliant with CPAP Hypertension History of hypothyroidism Anxiety/depression Plan: The patient was seen and evaluated Medications reviewed Stable and on 3 L nasal cannula Cleared for discharge Continue her home oxygen/pulmonary medications Complete a prednisone taper Follow-up in the office in 1 week I have personally seen and examined the patient, performed the documentation and the assessment and plan as written. Number of minutes spent on the visit: 10 Dictation was produced using [employer] software. Please excuse any grammatical, word or spelling errors.
--- NOTE | 2025-02-08 01:57 | DS ---
DISCHARGE SUMMARY CHIEF COMPLAINT: Difficulty breathing. HISTORY OF PRESENT ILLNESS AND PHYSICAL EXAMINATION: Details of this lady's history and physical can be found in the initial workup. LABORATORY STUDIES: While she is in a hospital, she had laboratory studies, details of which can be found in the laboratory section of her chart. COURSE IN THE HOSPITAL: After admission she was placed on bedrest, started on intravenous fluids, nasal O2, updrafts, and she slowly improved. She has severe COPD and she never does respond quickly. At times, she became very agitated and upset, which was also normal for her, and it was felt that she may be back to her baseline and that she could be discharged and she agreed. She wanted to go home on her usual medications and treatment and not on any steroids. She will be seen in the office in several days. FINAL DIAGNOSIS: Exacerbation of chronic obstructive pulmonary disease. OPERATIONS: None. CONSULTATIONS: She has improved. MMODL / FLASHN: [id number] /
== END 2025-02-07 14:14 | disposition home health service (06) | DRG 190 ==
LOC: EC 14:58 → 5NMEDONC 15:56
PROVIDERS: ADMIT Family Medicine; ATTEND Family Medicine
DX: J44.1 Chronic obstructive pulmonary disease with (acute) exacerbation (principal); J96.21 Acute and chronic respiratory failure with hypoxia; E03.9 Hypothyroidism, unspecified; F32.A Depression, unspecified; I10 Essential (primary) hypertension; G25.81 Restless legs syndrome; Z11.52 Encounter for screening for COVID-19; D72.829 Elevated white blood cell count, unspecified; F41.9 Anxiety disorder, unspecified; F17.210 Nicotine dependence, cigarettes, uncomplicated; R00.0 Tachycardia, unspecified; Z79.890 Hormone replacement therapy; Z79.899 Other long term (current) drug therapy; Z91.199 Patient's noncompliance with other medical treatment and regimen due to unspecified reason; Z99.81 Dependence on supplemental oxygen; Z88.1 Allergy status to other antibiotic agents; Z88.0 Allergy status to penicillin; Z88.2 Allergy status to sulfonamides; Z98.51 Tubal ligation status
CPT/HCPCS: 36415; 71046; 80053; 83605; 83735; 83880; 84484; 85025; 85610; 85730; 87040; 87636; 93005; 94640; 94760; 96361; 96374; 96375; 99285